=== PATIENT | female | born 1995 ===

== ENCOUNTER 2017-03-23 01:35 | Emergency (ER) | payer MEDICAID, OTHER ==
[2017-03-23 01:49] VITALS: BP 113/59; PULSE 89; RESP 16; TEMP 98.8; O2SAT 100
--- NOTE | 2017-03-23 02:20 | ED PDOC ---
Upper Extremity Pain/Injury Time Seen by Provider: 03/23/17 02:02 Chief Complaint (Nursing): Abnormal Skin Integrity Chief Complaint (Provider): left arm irritation History Per: Patient History/Exam Limitations: no limitations Onset/Duration Of Symptoms: Days (2) Current Symptoms Are (Timing): Still Present Quality: Burning Additional History Per: Patient Additional Complaint(s): 21 y/o female presents for eval of left arm irritation x 2 days. Patient states she was at a BBQ and thinks she may have been bitten by an insect. She noted two prurutic raised areas to arm, with mild surrounding redness. Denies fever, nausea/vomiting, drainage from site, numbness/weakness left upper extremity. Past Medical History Reviewed: Historical Data, Nursing Documentation, Vital Signs Vital Signs: Last Vital Signs Temp 98.8 F 03/23/17 01:45 Pulse 89 03/23/17 01:45 Resp 16 03/23/17 01:45 BP 113/59 L 03/23/17 01:45 Pulse Ox 100 03/23/17 01:45 - Medical History PMH: No Chronic Diseases - Surgical History Surgical History: No Surg Hx - Family History Family History: States: Unknown Family Hx - Living Arrangements Living Arrangements: With Family - Immunization History Hx Tetanus Toxoid Vaccination: No Hx Influenza Vaccination: No Hx Pneumococcal Vaccination: Yes - Home Medications Home Medications: Ambulatory Orders Medication Instructions Recorded Multivitamin and [id number] 1 tab PO DAILY #30 tab 07/06/14 [] DiphenhydrAMINE [Benadryl] 25 mg PO Q4H PRN #30 cap 03/23/17 Hydrocortisone 1% Cream [Cortizone 1 appl TP BID #1 tube 03/23/17 1% Cream] - Allergies Allergies/Adverse Reactions: Allergies Allergy/AdvReac Type Severity Reaction Status Date / Time No Known Allergies Allergy Verified 07/06/14 18:38 Review of Systems ROS Statement: Except As Marked, All Systems Reviewed And Found Negative Musculoskeletal: Positive for: Arm Pain Physical Exam - Reviewed Nursing Documentation Reviewed: Yes Vital Signs Reviewed: Yes - Physical Exam Appears: Positive for: Well, Non-toxic, No Acute Distress Head Exam: Positive for: ATRAUMATIC, NORMAL INSPECTION, NORMOCEPHALIC Skin: Positive for: Rash (puncture wounds with mild surrounding erythema noted posterior aspect left upper arm, proximal left forearm. No drainage, fluctuance , tenderness noted ) Pulses-Radial (L): 2+ Pulses-Radial (R): 2+ Extremity: Positive for: Normal ROM Neurologic/Psych: Positive for: Alert, Oriented - ECG O2 Sat by Pulse Oximetry: 100 - Progress ED Course And Treament: Benadryl PO Patient educated on findings, discharged with rx Benadryl, Hydrocortisone Crm. Advised follow up PMD 2-3 days. Return to ED for worsening/concerning symptoms. Disposition - Clinical Impression Clinical Impression: Insect bite of multiple sites of upper arm with local reaction - Patient ED Disposition Is Patient to be Admitted: No Counseled Patient/Family Regarding: Diagnosis, Need For Followup, Rx Given - Disposition Referrals: Lorrie Hillman MD [Primary Care Provider] - Disposition: Routine/Home Disposition Time: 02:38 Condition: GOOD Prescriptions: DiphenhydrAMINE [Benadryl] 25 mg PO Q4H PRN #30 cap PRN Reason: Allergy Symptoms Hydrocortisone 1% Cream [Cortizone 1% Cream] 1 appl TP BID #1 tube Instructions: Insect Bite or Sting (ED) Print Language: AFGHAN
== END 2017-03-23 02:22 | disposition home or self-care (01) ==
LOC: H.ER 01:35
DX: T14.8 Other injury of unspecified body region (principal); W57.XXXA Bitten or stung by nonvenomous insect and other nonvenomous arthropods, initial encounter; Y92.89 Other specified places as the place of occurrence of the external cause

== ENCOUNTER 2017-05-09 01:12 | Emergency (ER) | payer MEDICAID ==
[2017-05-09 01:29] VITALS: BP 131/72; PULSE 101; RESP 16; TEMP 99.2; O2SAT 100
[2017-05-09] MEDS ORDERED: DiphenhydrAMINE 50 mg/ml Inj IVP STA (01:46)
--- NOTE | 2017-05-09 01:47 | ED PDOC ---
HPI: Skin/Bite Injury Time Seen by Provider: 05/09/17 01:22 Chief Complaint (Nursing): Abnormal Skin Integrity Chief Complaint (Provider): Rash History Per: Patient Additional Complaint(s): Pt ambulated to ER for eval of pruritic skin irritation onset at approx 20:00. Pt can not identify any triggering factors. no new foods, lotions, detergents etc. no SOB or swelling. Pt has not medicated with anything thus far Past Medical History Reviewed: Nursing Documentation, Vital Signs Vital Signs: Last Vital Signs Temp 99.2 F 05/09/17 01:26 Pulse 101 H 05/09/17 01:26 Resp 16 05/09/17 01:26 BP 131/72 05/09/17 01:26 Pulse Ox 100 05/09/17 01:47 - Medical History PMH: No Chronic Diseases - Surgical History Surgical History: No Surg Hx - Family History Family History: States: Unknown Family Hx - Living Arrangements Living Arrangements: With Family - Social History Current smoker - smoking cessation education provided: No Alcohol: None Drugs: Denies - Immunization History Hx Tetanus Toxoid Vaccination: No Hx Influenza Vaccination: No Hx Pneumococcal Vaccination: Yes - Home Medications Home Medications: Ambulatory Orders Medication Instructions Recorded Multivitamin and [id number] 1 tab PO DAILY #30 tab 07/06/14 [] DiphenhydrAMINE [Benadryl] 25 mg PO Q4H PRN #30 cap 03/23/17 Hydrocortisone 1% Cream [Cortizone 1 appl TP BID #1 tube 03/23/17 1% Cream] Methylprednisolone [Medrol Dose 4 mg PO DAILY #21 mg 05/09/17 Pack (21 tabs)] - Allergies Allergies/Adverse Reactions: Allergies Allergy/AdvReac Type Severity Reaction Status Date / Time No Known Allergies Allergy Verified 07/06/14 18:38 Review of Systems ROS Statement: Except As Marked, All Systems Reviewed And Found Negative Skin: Positive for: Rash Physical Exam - Reviewed Nursing Documentation Reviewed: Yes Vital Signs Reviewed: Yes - Physical Exam Appears: Positive for: Well, Non-toxic, No Acute Distress Head Exam: Positive for: ATRAUMATIC, NORMAL INSPECTION, NORMOCEPHALIC Skin: Positive for: Warm, Rash (erythematous maculopapular rash over torso and upper extremities.) Eye Exam: Positive for: EOMI, Normal appearance, PERRL ENT: Positive for: Normal ENT Inspection Neck: Positive for: Normal, Painless ROM Cardiovascular/Chest: Positive for: Regular Rate, Rhythm Respiratory: Positive for: CNT, Normal Breath Sounds Gastrointestinal/Abdominal: Positive for: Normal Exam, Bowel Sounds, Soft Back: Positive for: Normal Inspection Extremity: Positive for: Normal ROM Neurologic/Psych: Positive for: Alert, Oriented - ECG O2 Sat by Pulse Oximetry: 100 Medical Decision Making Medical Decision Making: IV access established and treatment initiated with Solumedrol, Benadryl and Pepcid Pt on re-eval reports feeling greatly improved, rash noticeably diminished Advised to continue with medication as directed, return to ED if at anytime condition worsens Disposition - Clinical Impression Clinical Impression: Urticaria - Patient ED Disposition Is Patient to be Admitted: No - Disposition Disposition: Routine/Home Disposition Time: 03:04 Condition: STABLE Prescriptions: Methylprednisolone [Medrol Dose Pack (21 tabs)] 4 mg PO DAILY #21 mg Instructions: Urticaria (ED)
[2017-05-09] MEDS ORDERED: DiphenhydrAMINE 50 mg/ml Inj ONE (02:09)
== END 2017-05-09 03:07 | disposition home or self-care (01) ==
LOC: H.ER 01:12
DX: L50.9 Urticaria, unspecified (principal)

== ENCOUNTER 2017-09-27 22:24 | Emergency (ER) | payer MEDICAID ==
[2017-09-27 22:32] VITALS: BP 116/82; PULSE 93; RESP 16; TEMP 98.3; O2SAT 99
[2017-09-27] MEDS ORDERED: Sodium Chloride 0.9% 1,000 ML IV STA (22:39)
--- NOTE | 2017-09-27 22:41 | ED PDOC ---
HPI: General Adult Time Seen by Provider: 09/27/17 22:40 Chief Complaint (Nursing): Abnormal Skin Integrity Chief Complaint (Provider): rash History Per: Patient (22 y/o female here with rash noted generalized x 2 days after eating burger. Unsure if this was cause of symptoms. Has had similar rash on and off since 04/2017 unsure of cause. Took zyrtec/benadryl today.) Past Medical History Reviewed: Historical Data, Nursing Documentation, Vital Signs Vital Signs: Last Vital Signs Temp 98.3 F 09/27/17 22:26 Pulse 93 H 09/27/17 22:26 Resp 16 09/27/17 22:26 BP 116/82 09/27/17 22:26 Pulse Ox 99 09/27/17 22:41 - Family History Family History: States: Unknown Family Hx - Immunization History Hx Tetanus Toxoid Vaccination: No Hx Influenza Vaccination: No Hx Pneumococcal Vaccination: Yes - Home Medications Home Medications: Ambulatory Orders Medication Instructions Recorded Multivitamin and [id number] 1 tab PO DAILY #30 tab 07/06/14 [] DiphenhydrAMINE [Benadryl] 25 mg PO Q4H PRN #30 cap 03/23/17 Hydrocortisone 1% Cream [Cortizone 1 appl TP BID #1 tube 03/23/17 1% Cream] Methylprednisolone [Medrol Dose 4 mg PO DAILY #21 mg 05/09/17 Pack (21 tabs)] DiphenhydrAMINE [Benadryl] 1 - 2 tab PO Q6 PRN #24 cap 09/27/17 Epinephrine [Epipen] 0.3 mg IJ ONCE PRN #2 auto.injct 09/27/17 Famotidine [Pepcid] 20 mg PO BID #10 tab 09/27/17 Prednisone [Deltasone] 3 tab PO DAILY #12 tablet 09/27/17 - Allergies Allergies/Adverse Reactions: Allergies Allergy/AdvReac Type Severity Reaction Status Date / Time No Known Allergies Allergy Verified 07/06/14 18:38 Review of Systems ROS Statement: Except As Marked, All Systems Reviewed And Found Negative Physical Exam - Reviewed Nursing Documentation Reviewed: Yes Vital Signs Reviewed: Yes - Physical Exam Appears: Positive for: Well, Non-toxic, No Acute Distress Head Exam: Positive for: ATRAUMATIC, NORMAL INSPECTION, NORMOCEPHALIC Skin: Positive for: Normal Color, Warm, DRY Eye Exam: Positive for: EOMI, Normal appearance, PERRL ENT: Positive for: Normal ENT Inspection Neck: Positive for: Normal, Painless ROM Cardiovascular/Chest: Positive for: Regular Rate, Rhythm Respiratory: Positive for: CNT, Normal Breath Sounds Gastrointestinal/Abdominal: Positive for: Normal Exam, Bowel Sounds, Soft Back: Positive for: Normal Inspection Extremity: Positive for: Normal ROM Neurologic/Psych: Positive for: Alert, Oriented - ECG O2 Sat by Pulse Oximetry: 99 - Progress ED Course And Treament: solumedrol 125mg iv x 1 dose pepcid 20 mg iv x 1 dose Disposition - Clinical Impression Clinical Impression: Urticaria - Patient ED Disposition Is Patient to be Admitted: No - Disposition Referrals: [facility] [Outside] Disposition: Routine/Home Disposition Time: 23:17 Condition: FAIR Prescriptions: DiphenhydrAMINE [Benadryl] 1 - 2 tab PO Q6 PRN #24 cap PRN Reason: Rash Epinephrine [Epipen] 0.3 mg IJ ONCE PRN #2 auto.injct PRN Reason: Anaphylaxis Famotidine [Pepcid] 20 mg PO BID #10 tab Prednisone [Deltasone] 3 tab PO DAILY #12 tablet Instructions: [facility]aria (ED) Forms: [facility] ED School/Work Excuse, [employer] (Chinese) Print Language: LITHUANIAN
== END 2017-09-27 23:39 | disposition home or self-care (01) ==
LOC: H.ER 22:24
DX: L50.9 Urticaria, unspecified (principal)
CPT/HCPCS: 96374; 96375; 99282; J2930; J7040